=== PATIENT | male | born 1955 | race Caucasian/White ===

== ENCOUNTER → 2024-08-24 | Outpatient (CLI) | payer MEDICARE ==
--- NOTE | 2024-08-24 09:11 | MR ---
EXAMINATION TYPE: MR Prostate wo/w con DATE OF EXAM: 08/24/2024 8:13 AM COMPARISON: None. CLINICAL INDICATION: Male, 68 years old with history of R97.20 ELEVATED PSA; Elevated PSA. TECHNIQUE: Multi-planar, multi-sequence imaging of the pelvis is performed prior to and following the uncomplicated administration of bolus intravenous gadolinium. IV Contrast: 8.5 mL Gadobutrol Interpretive Criteria: PI-RADS v2.1 SERUM PSA: 07-16- = 4.23 - = 4.2 2023 = 2.74 SURGICAL PATHOLOGY: No data available. FINDINGS: Prostatic dimensions: 5.3 x 5.1 x 4.4 cm. Ellipsoid Volume:62.27 (PSA density=0.07 ng/mL/mL) CENTRAL GLAND (Central and Transition Zones/CZ+TZ): Multiple bilateral, heterogenous appearing hypertrophic stromal nodules, without suspicious lesion. M edian lobe hypertrophy with protrusion into the base of the bladder. (PI-RADS 2) PERIPHERAL ZONE (PZ): * Low T2/ADC and higher DWI region in the right posterior peripheral gland mid gland measuring 10 x 6 mm (PI-RADS 4) mild arterial enhancement is identified on this region. * Additional low T2 signal region without associated ADC signal abnormality measuring 4 mm left apple pheral zone apex. (PI-RADS 3) there may be mild arterial enhancement within this region. Focal (discrete and different from the background) hypointense on ADC and/or focal hyperintense on hi gh b-value DWI; may be markedly hypointense on ADC or markedly hyperintense on high b-value DWI, but not both. SEMINAL VESICLES (SV): Symmetric and unremarkable. PERIPROSTATIC TISSUES: Unremarkable. LYMPH NODES: No enlarged pelvic lymph node. REMAINING PELVIS: Bladder wall is within normal limits given distention. No abnormal free or organized intrapelvic fluid collection. No pathologic bowel dilation or mural thickening. Colonic diverticula are present. Bilateral fat containing inguinal hernias. OSSEOUS STRUCTURES: No suspicious osseous abnormality. IMPRESSION: 1. PI-RADS 4 Lesion in the right peripheral zone, mid gland measuring 10 x 6 mm. 2. PI-RADS 3 lesion which is low T2 signal measuring 4 mm in the left peripheral zone apex. 3. Moderate BPH, estimated gland volume 62.27 (PSA density=0.07 ng/mL/mL) 4. No suspicious osseous lesion. No lymphadenopathy. No evidence of prostate adenocarcinoma involving the periprostatic tissues. [facility], , 08/24/2024 9:08 AM
== END | disposition home or self-care (01) ==
LOC: RADMRIMAIN 07:03
PROVIDERS: ATTEND Urology
DX: N40.0 Benign prostatic hyperplasia without lower urinary tract symptoms (principal); R97.20 Elevated prostate specific antigen [PSA]
CPT/HCPCS: 72197; A9585

== ENCOUNTER → 2024-09-04 | Outpatient (CLI) | payer MEDICARE ==
[2024-09-05 02:21] LABS: Basophils # (A) 0.06 X 10*3/uL (0.00-0.10); Basophils % (A) 0.6 %; Eosinophils # (A) 0.25 X 10*3/uL (0.04-0.35); Eosinophils % (A) 2.7 %; HCT 46.6 % (39.6-50.0); HGB 15.9 g/dL (13.0-17.0); Immature Grans, Automated 0.40 %; Lymphocytes # (A) 2.28 X 10*3/uL (0.90-5.00); Lymphocytes % (A) 24.2 %; MCH 30.8 pg (27.0-32.0); MCHC 34.1 g/dL (32.0-37.0); MCV 90.3 FL (80.0-97.0); Monocytes # (A) 0.90 X 10*3/uL (0.20-1.00); Monocytes % (A) 9.6 %; NRBC Per 100 WBC 0 X 10*3/uL (0.00-0.01); Neutrophils # (A) 5.89 X 10*3/uL (1.80-7.70); Neutrophils % (A) 62.5 %; Platelet Count 256 X 10*3/uL (140-440); RBC 5.16 X 10*6/uL (4.40-5.60); RDW 13.3 % (11.5-14.5); WBC 9.42 X 10*3/uL (4.50-10.00)
[2024-09-05 03:09] LABS: Anion Gap 13.60 mmol/L (4.00-12.00); BUN/Creat Ratio 31.25 Ratio (12.00-20.00); Blood Urea Nitrogen 25.0 mg/dL (9.0-27.0); Calcium 9.9 mg/dL (8.7-10.3); Carbon Dioxide 27.4 mmol/L (21.6-31.8); Chloride 107 mmol/L (96-109); Glucose 84 mg/dL (70-110); Potassium 3.9 mmol/L (3.5-5.5); Sodium 148 mmol/L (135-145)
== END | disposition home or self-care (01) ==
LOC: LABPAT 15:57
PROVIDERS: ATTEND Urology
DX: Z01.812 Encounter for preprocedural laboratory examination (principal); R97.20 Elevated prostate specific antigen [PSA]
CPT/HCPCS: 80048; 85025

== ENCOUNTER 2024-09-09 08:22 | Day surgery (SDC) | payer MEDICARE ==
[2024-09-08 12:02] VITALS: BMI 28.1
--- NOTE | 2024-09-09 07:35 | P.HPIHPCON ---
History of Present Illness H&P Date: 09/09/24 Chief Complaint: Elevated PSA This is a 68-year-old male with history of elevated PSA at 4.3. Underwent a prostate MRI that showed evidence of a PI-RADS 4 lesion right mid gland, and a PI-RADS 3 lesion along the left apex. Discussed with him given this finding I do recommend proceeding with an MRI fusion biopsy of the prostate. He is aware of the risk which include but not limited to bleeding, infection Consent for Procedure: I have explained the operation/procedure to the patient, including the risks, benefits, side effects, alternative therapies (including not receiving the proposed treatment or service), the likelihood of the patient achieving his/her goals, and potential recuperation problems for the procedure/sedation/analgesia, as well as any blood products, if indicated. I also explained to the patient the risks, benefits and side effects of the alternatives, as well as the risks related to not receiving the proposed procedure, care, treatment, or services. Past Medical History Past Medical History: Hypertension, Prostate Disorder Additional Past Medical History / Comment(s): "had a couple spots on prostate from recent MRI",BPH History of Any Multi-Drug Resistant Organisms: None Reported Past Surgical History: Hernia Repair Additional Past Surgical History / Comment(s): umbilical hernia w/ mesh,colonoscopies Past Anesthesia/Blood Transfusion Reactions: No Reported Reaction Additional Past Anesthesia/Blood Transfusion Reaction / Comment(s): no hx blood transfusion Smoking Status: Former smoker - Past Family History Mother Family Medical History: No Reported History Medications and Allergies Home Medications Medication Instructions Recorded Confirmed Type Ciprofloxacin HCl [Cipro] 500 mg PO Q12HR 09/08/24 09/08/24 History Naproxen [Naprosyn] 500 mg PO BID PRN 09/08/24 09/08/24 History Tamsulosin HCl [Flomax] 0.4 mg PO QAM 09/08/24 09/08/24 History atenoloL [Tenormin] 25 mg PO QAM 09/08/24 09/08/24 History Allergies Allergy/AdvReac Type Severity Reaction Status Date / Time No Known Allergies Allergy Verified 09/08/24 11:49 Surgical - Exam - General no distress, no pain - Eyes normal ocular movement, no pale - ENT normal nares, normal mucosa - Respiratory normal expansion, normal respiratory effort - Abdomen Abdomen: soft, non tender Assessment and Plan Assessment: OR for MRI fusion biopsy of the prostate
[2024-09-09] MEDS: LACTATED RINGERS 1,000 ML IV SCH (10:19)
[2024-09-09] MEDS: GENTAMICIN 40 MG/ML 2 ML VIAL IM PRN (10:19)
[2024-09-09 10:30] VITALS: RESP 16; TEMP 97
[2024-09-09] MEDS: IV FLUID CONTINUATION 1,000 ML IV ONE (10:30)
[2024-09-09] MEDS ORDERED: ePHEDrine 50 MG/ML 1 ML VIAL ONE (11:08)
[2024-09-09] MEDS ORDERED: LIDOCAINE 1% INJ 10MG/ML (20 ML MDV) ONE (11:08)
[2024-09-09] MEDS ORDERED: PROPOFOL 10 MG/ML 20 ML VIAL IV ONE (11:08)
--- NOTE | 2024-09-09 11:39 | P.OP ---
Date of Procedure: 09/09/24 Preoperative Diagnosis: Elevated PSA Postoperative Diagnosis: Same Procedure(s) Performed: MRI fusion biopsy of the prostate Implants: None Anesthesia: MAC Surgeon: Gustavo Almanza Estimated Blood Loss (ml): 1 Pathology: other (Prostate biopsies) Condition: stable Disposition: PACU Indications for Procedure: This is a 68-year-old male with history of elevated PSA at 4.3. Underwent a prostate MRI that showed evidence of a PI-RADS 4 lesion right mid gland, and a PI-RADS 3 lesion along the left apex. Discussed with him given this finding I do recommend proceeding with an MRI fusion biopsy of the prostate. He is aware of the risk which include but not limited to bleeding, infection Description of Procedure: The patient was taken to the operating room and placed in the left lateral decubitus position. The [email or web address] transrectal ultrasound probe was placed intrarectally. It was then placed within the stand of the [employer] MRI/TRUS Fusion for Prostate Biopsy system. The prostate was imaged in both the axial and sagittal planes. Using the Biopsy gun, 4 biopsies were obtained from the target lesion, there were was two lesions, . The remaining 12 biopsies of the peripheral zone were obtained utilizing a standard template. Once the procedure was completed, the ultrasound probe was removed. The patient tolerated the procedure well was taken to the recovery room stable condition
[2024-09-09 11:53] VITALS: BP 97/67; PULSE 54
== END 2024-09-09 12:04 | disposition home or self-care (01) ==
LOC: OR 08:22
PROVIDERS: ATTEND Urology
DX: C61 Malignant neoplasm of prostate (principal); N40.0 Benign prostatic hyperplasia without lower urinary tract symptoms; I10 Essential (primary) hypertension; Z98.890 Other specified postprocedural states; Z87.891 Personal history of nicotine dependence; Z79.899 Other long term (current) drug therapy
CPT/HCPCS: 55700; 88305; J1580; J2003; J2704